=== PATIENT | female | born 1940 | race Caucasian/White ===

== ENCOUNTER 2022-01-14 15:10 | Inpatient (IN) | payer MEDICARE, OTHER ==
[~2022-01-14] VITALS: Ht 165.1 cm; Wt 70.6 kg
[2022-01-14 16:50] LABS: Basophils # (auto) 0.3 10 ^3/uL (0-0.2); Basophils % (auto) 3.8 % (0.0-2.0); Eosinophils # (auto) 0.1 10 ^3/uL (0-0.8); Eosinophils % (auto) 1.7 % (0.0-7.0); Hematocrit 33.9 % (36.0-46.0); Hemoglobin 11.6 g/dL (12.2-16.2); Lymphocytes % (auto) 14.2 % (10.0-50.0); Mean Corpuscular Hemoglobin 31.8 pg (28.0-32.0); Mean Corpuscular Hgb Conc. 34.2 g/dL (32.0-36.0); Mean Corpuscular Volume 92.8 fL (80.0-100.0); Monocytes # (auto) 0.6 10 ^3/uL (0-1.3); Monocytes % (auto) 9.2 % (0.0-12.0); Neutrophils % (auto) 71.1 % (37.0-80.0); Red Blood Cells 3.65 10^6/uL (4.0-5.20); Red Cell Distribution Width 14.2 % (11.8-14.3)
[2022-01-14 17:08] LABS: Albumin 3.7 g/dL (3.4-5.0); Calcium 9.7 mg/dL (8.5-10.1); Potassium 3.7 mmol/L (3.5-5.1)
[2022-01-14 17:12] LABS: BUN/Creatinine Ratio 21.4; Bilirubin, Total 0.6 mg/dL (0.2-1.0)
[2022-01-14 17:15] LABS: Urine Bacteria NONE SEEN /hpf (None Seen); Urine Blood Negative /uL (Negative); Urine Specific Gravity 1.009 (1.001-1.035); Urine WBC 42 /hpf (0 - 5)
[2022-01-14] MEDS ORDERED: cefTRIAXone 1GM/50ML D5W 50 ML IV ONE (17:30)
[2022-01-15] MEDS ORDERED: cefTRIAXone 1GM/50ML D5W 50 ML IV ONE (09:00)
[2022-01-15] MEDS ORDERED: traMADol HCL 50 MG TAB PO PRN (09:00)
[2022-01-15] MEDS ORDERED: cefTRIAXone 1GM/50ML D5W 50 ML IV SCH (09:00)
[2022-01-15] MEDS ORDERED: ONDANSETRON HCL 4 MG/2 ML VIAL IV PRN (09:00)
[2022-01-15] MEDS ORDERED: ACETAMINOPHEN 500 MG TAB PO PRN (09:00)
[2022-01-15] MEDS: SODIUM CHLORIDE 0.9% 1,000 ML IV SCH ×3 (10:52→22:47)
[2022-01-15 15:40] VITALS: BP 127/60
[2022-01-15 17:32] VITALS: BP 127/60
[2022-01-15 22:00] VITALS: BP 147/59
[2022-01-15] MEDS: ZOLPIDEM TARTRATE 5 MG TAB PO PRN (22:43)
[2022-01-16 05:00] VITALS: BP 120/82
[2022-01-16 08:33] VITALS: BP 128/52
[2022-01-16] MEDS: cefTRIAXone 1GM/50ML D5W 50 ML IV SCH (09:14)
[2022-01-16] MEDS: RIVAROXABAN 10 MG TAB PO SCH (09:21)
[2022-01-16] MEDS: SODIUM CHLORIDE 0.9% 1,000 ML IV SCH (09:21)
[2022-01-16 13:00] VITALS: BP 149/58
[2022-01-16 16:50] VITALS: BP 149/63
[2022-01-16 22:00] VITALS: BP 187/67
[2022-01-17] MEDS: hydrALAZINE HCL 20 MG/ML VL IV PRN ×2 (00:12→08:56)
[2022-01-17] MEDS ORDERED: LOSA-69 PO (01:31)
[2022-01-17] MEDS ORDERED: HYDR25TA4 PO (01:31)
[2022-01-17] MEDS ORDERED: ATOR10TA52 PO (01:31)
[2022-01-17] MEDS ORDERED: AMIO200T33 PO (01:31)
[2022-01-17] MEDS ORDERED: PANT1INJ3 PO (01:31)
[2022-01-17] MEDS ORDERED: MAGN400T40 PO (01:31)
[2022-01-17] MEDS ORDERED: LEVO50TA7 PO (01:31)
[2022-01-17] MEDS ORDERED: RIVA10TA PO (01:31)
[2022-01-17] MEDS: ZOLPIDEM TARTRATE 5 MG TAB PO PRN (01:50)
[2022-01-17 05:00] VITALS: BP 127/47
[2022-01-17 06:17] LABS: Basophils # (auto) 0.1 10 ^3/uL (0-0.2); Basophils % (auto) 0.8 % (0.0-2.0); Eosinophils # (auto) 0.2 10 ^3/uL (0-0.8); Eosinophils % (auto) 2.8 % (0.0-7.0); Hematocrit 31.4 % (36.0-46.0); Hemoglobin 10.6 g/dL (12.2-16.2); Lymphocytes # (auto) 1.7 10 ^3/uL (0.4-5.4); Lymphocytes % (auto) 21.8 % (10.0-50.0); Mean Corpuscular Hemoglobin 31.4 pg (28.0-32.0); Mean Corpuscular Hgb Conc. 33.6 g/dL (32.0-36.0); Mean Corpuscular Volume 93.2 fL (80.0-100.0); Monocytes % (auto) 12.7 % (0.0-12.0); Neutrophils # (auto) 4.9 10 ^3/uL (1.6-8.6); Neutrophils % (auto) 61.9 % (37.0-80.0); Red Blood Cells 3.37 10^6/uL (4.0-5.20); Red Cell Distribution Width 14.4 % (11.8-14.3); White Blood Cell 7.9 10^3/uL (4.4-10.8)
[2022-01-17 06:35] LABS: Calcium 8.6 mg/dL (8.5-10.1); Potassium 3.8 mmol/L (3.5-5.1)
[2022-01-17 06:37] LABS: BUN/Creatinine Ratio 17.4
[2022-01-17 08:45] VITALS: BP 171/65
[2022-01-17] MEDS: cefTRIAXone 1GM/50ML D5W 50 ML IV SCH (08:53)
[2022-01-17] MEDS: RIVAROXABAN 10 MG TAB PO SCH (08:56)
[2022-01-17] MEDS ORDERED: CIPR-173 PO (11:50)
[2022-01-17 13:00] VITALS: BP 157/53
[2022-01-17] MEDS ORDERED: LABETALOL HCL 5 MG/ML 4ML SYRINGE IV ONE (13:30)
[2022-01-17] MEDS ORDERED: AMIODARONE HCL 200 MG TAB PO SCH (14:38)
[2022-01-17 14:43] VITALS: BP 155/69
[2022-01-17] MEDS ORDERED: CIPROFLOXACIN HCL 500 MG TAB PO SCH (14:43)
[2022-01-17 16:49] VITALS: BP 161/62
[2022-01-18] MEDS ORDERED: RIVAROXABAN 10 MG TAB PO SCH (10:00)
[2022-01-18] MEDS ORDERED: HCTZ 25 MG TAB PO SCH (10:00)
[2022-01-18] MEDS ORDERED: LOSARTAN POTASSIUM 50 MG TAB PO SCH (10:00)
== END 2022-01-17 18:22 | disposition home or self-care (01) | DRG 178 ==
LOC: ER 15:10 → EDBD 15:10 → OVERFLOW 01-15 08:54 → WEST WING 01-15 15:36
PROVIDERS: ADMIT Internal Medicine; ATTEND Internal Medicine Pulmonary Disease
DX: J15.1 Pneumonia due to Pseudomonas (principal); E87.1 Hypo-osmolality and hyponatremia; J44.0 Chronic obstructive pulmonary disease with (acute) lower respiratory infection; J96.11 Chronic respiratory failure with hypoxia; E03.9 Hypothyroidism, unspecified; N30.90 Cystitis, unspecified without hematuria; I16.0 Hypertensive urgency; E78.5 Hyperlipidemia, unspecified; R79.89 Other specified abnormal findings of blood chemistry; I10 Essential (primary) hypertension; Z20.822 Contact with and (suspected) exposure to COVID-19; I48.91 Unspecified atrial fibrillation; Z95.0 Presence of cardiac pacemaker; Z87.891 Personal history of nicotine dependence; Z87.440 Personal history of urinary (tract) infections; Z86.73 Personal history of transient ischemic attack (TIA), and cerebral infarction without residual deficits
CPT/HCPCS: 36415; 71045; 80048; 80053; 81001; 85025; 87040; 87086; 87088; 87186; 96365; 97163; G0378; J0696; J3490